=== PATIENT | female | born 1990 | race Caucasian/White ===

== ENCOUNTER 2020-10-07 09:44 | Outpatient (CLI) | payer MEDICAID | END 2020-10-07 09:45 | disposition EMS.NT | LOC: EMS 09:44 | DX: M79.672 Pain in left foot (principal); T63.441A Toxic effect of venom of bees, accidental (unintentional), initial encounter ==

== ENCOUNTER 2020-10-07 10:42 | Emergency (ER) | payer MEDICAID ==
--- NOTE | 2020-10-07 11:23 | ED Physician Documentation ---
PD HPI SKIN - Stated complaint Stated Complaint: ALLERGIC REACTION - Chief complaint Chief Complaint: Allergic Rx - History obtained from History obtained from: Patient - History of Present Illness Timing - onset: How many hours ago (1) Timing - duration: Hours (1) Timing - details: Gradual onset (she was stung by a bee and started to feel some local itching not no feeling of dyspnea, diffuse hives right away. Symptoms increased over the next half hour with feeling of dyspnea and some lightheaded. Took Benadryl and itching has decreased but still dyspnea feeling.), Still present Location: [place] Quality / character: Itchy, Other (dyspnea) Improved by: Benadryl Associated symptoms: Dyspnea. No: Fever, Myalgias, Facial swelling, N/V/D Contributing factors: Insect bite /sting Similar symptoms before: Diagnosis (has had anayphylactic reactions to bee stings twice in the past. Usually carries epipen but did not have with her today. Called 911 due to concern of reaction worsening. Did not have the abrupt significant symptoms she has had in the past.) Recently seen: Not recently seen Review of Systems Constitutional: denies: Fever, Chills Nose: denies: Rhinorrhea / runny nose, Congestion Throat: denies: Sore throat Respiratory: reports: Dyspnea. denies: Cough, Wheezing GI: denies: Nausea, Vomiting, Diarrhea Skin: reports: Rash (some hives after the sting.) Neurologic: reports: Generalized weakness. denies: Focal weakness, Numbness, Near syncope PD PAST MEDICAL HISTORY - Past Medical History Cardiovascular: None Respiratory: None Neuro: None Endocrine/Autoimmune: None - Past Surgical History Past Surgical History: No - Present Medications Home Medications: Ambulatory Orders Medication Instructions Recorded Confirmed Albuterol Sulf [Ventolin Hfa 2 - 3 puffs INH Q4HR PRN #1 inhaler 10/07/20 Inhaler] Cetirizine [ZyrTEC] 10 mg PO BID #15 tablet 10/07/20 dexAMETHasone [Decadron] 4 mg PO DAILY #5 tablet 10/07/20 - Allergies Allergies/Adverse Reactions: Allergies Allergy/AdvReac Type Severity Reaction Status Date / Time No Known Drug Allergies Allergy Verified 10/07/20 12:34 - Social History Does the pt smoke?: No Does the pt have substance abuse?: No PD ED PE NORMAL - Vitals Vital signs reviewed: Yes - General General: Alert and oriented X 3, Well developed/nourished - HEENT HEENT: Moist mucous membranes, Pharynx benign (no edema noted of lips, tongue, pharynx. ) - Neck Neck: Supple, no meningeal sign, No adenopathy - Cardiac Cardiac: RRR, No murmur - Respiratory Respiratory: Clear bilaterally - Abdomen Abdomen: Soft, Non tender - Derm Derm: Normal color, Warm and dry, No rash - Neuro Neuro: Alert and oriented X 3, No motor deficit, Normal speech Eye Opening: Spontaneous Motor: Obeys Commands Verbal: Oriented GCS Score: 15 Results - Vitals Vitals: Vital Signs - 24 hr 10/07/20 10/07/20 10/07/20 10:59 12:22 13:19 Temperature 36.7 C 36.5 C Heart Rate 77 80 99 Respiratory 15 16 18 Rate Blood Pressure 136/72 H 127/75 O2 Saturation 99 100 Oxygen O2 Source Room air PD MEDICAL DECISION MAKING - ED course Complexity details: considered differential (not having anaphylactic symtpoms per se, but with feeling of dyspnea. Tried albuterol neb rather than IM epi and it helped quite a bit. She is feeling much better. ), d/w patient Departure - Departure Disposition: 01 Home, Self Care Clinical Impression: Allergic reaction to bee sting Condition: Stable Record reviewed to determine appropriate education?: Yes Instructions: ED Bite Sting Insect Gen Allergic React Prescriptions: Albuterol Sulf [Ventolin Hfa Inhaler] 2 - 3 puffs INH Q4HR PRN #1 inhaler PRN Reason: Shortness Of Air/Wheezing dexAMETHasone [Decadron] 4 mg PO DAILY #5 tablet Cetirizine [ZyrTEC] 10 mg PO BID #15 tablet Comments: The symptoms from the bee sting may persist up and down/undulate over the next day or 2. Use the Decadron steroid daily for the next several days. You can use cetirizine antihistamine twice daily for the next week. Add Benadryl if needed for worse itching or hives. Use the albuterol inhaler 2 to 3 puffs every 4 hours if needed for feeling of trouble breathing. If you have significant worsening of symptoms, you can use your EpiPen and return here for reevaluation. Otherwise recheck if not significantly improved and essentially better over the next 2 to 3 days. Discharge Date/Time: 10/07/20 13:20
[2020-10-07] MEDS ORDERED: diphenhydrAMINE ELIXIR 25 MG/10 ML UDC PO STA (12:04)
[2020-10-07] MEDS ORDERED: CETIRIZINE 10 MG TABLET PO STA (12:04)
[2020-10-07] MEDS ORDERED: DEXAMETHASONE 10 MG/ML VIAL PO STA (12:04)
[2020-10-07] MEDS ORDERED: ALBUTEROL NEB 2.5 MG/3 ML INH STA (12:04)
[2020-10-07] MEDS ORDERED: CHERRY SYRUP 10 ML UDC PO ONE (12:04)
[2020-10-07 13:20] VITALS: BP 127/75
== END 2020-10-07 13:20 | disposition home or self-care (01) ==
LOC: ED 10:42
DX: T63.441A Toxic effect of venom of bees, accidental (unintentional), initial encounter (principal); L50.9 Urticaria, unspecified
CPT/HCPCS: 94640; 99283; 99284; A9270